=== PATIENT | male | born 1995 | race Caucasian/White ===

== ENCOUNTER 2021-10-14 09:33 | Emergency (ER) | payer BC, OTHER ==
[~2021-10-14] VITALS: Ht 185.4 cm; Wt 100.0 kg
[~2021-10-14 09:33] MED LIST: HYDR1TAB10 PO
[2021-10-14 09:43] VITALS: BP 150/92
--- NOTE | 2021-10-14 09:59 | PHYS DOC ---
Past History Past Medical History: Other Past Surgical History: Other Smoking: Non-smoker Alcohol Use: None Drug Use: None Adult General Chief Complaint Chief Complaint: NOSEBLEED HPI HPI Patient is an otherwise healthy 26-year-old male presents with a nosebleed that started earlier in the day. States he gets them occasionally but this 1 seemed harder to stop. Denies any recent travels, traumas, illnesses, fevers, chest pain, shortness of breath, abdominal pain, nausea, vomiting. Denies any hematuria or blood in the stool. Denies any history of bleeding issues. has been eating and drinking normally. is making urine and stool normally for him. Review of Systems Review of Systems Review of systems otherwise unremarkable except noted in HPI Allergies Allergies Allergies Coded Allergies Type Severity Reaction Last Updated Verified Penicillins Allergy Severe HIVES AND THROAT SWELLING 06/10/14 Yes Physical Exam Physical Exam Constitutional: Well developed, well nourished, no acute distress, non-toxic appearance. [] HENT: Normocephalic, atraumatic, bilateral external ears normal, oropharynx moist, no oral exudates, nose normal, some dried blood in the nares bilaterally, bleeding ceased. [] Eyes: conjunctiva normal, no discharge. [] Cardiovascular:Heart rate regular rhythm, no murmur [] Lungs & Thorax: No respiratory distress Abdomen: soft, no tenderness, no masses, no pulsatile masses. [] Skin: Warm, dry, no erythema, no rash. [] Extremities: No tenderness, no cyanosis, no clubbing, ROM intact, no edema. [] Neurologic: Alert and oriented X 3, able to sit, stand and walk without issue no focal deficits noted. [] Psychologic: Affect normal, judgement normal, mood normal. [] Current Patient Data Vital Signs Vital Signs Date Time Temp Pulse Resp B/P (MAP) Pulse Ox O2 Delivery O2 Flow Rate FiO2 10/14/21 09:43 98.1 76 16 150/92 (111) 96 Room Air EKG EKG [] Radiology/Procedures Radiology/Procedures [] Heart Score C/O Chest Pain: No Risk Factors: Risk Factors: DM, Current or recent (<one month) smoker, HTN, HLP, family history of CAD, obesity. Risk Scores: Risk Factors: DM, Current or recent (<one month) smoker, HTN, HLP, family history of CAD, obesity. Course & Med Decision Making Course & Med Decision Making Patient is a 26-year-old male who presents with nosebleed that is resolved here in the ED Vital signs nonconcerning. Physical exam noted above. Discussed management of epistaxis and given Afrin. Given education on home management. Advised to follow-up with primary care as needed. Gave return precautions to the ED. Patient grateful, verbalized understanding and agreed with plan of discharge. [] Dragon Disclaimer Dragon Disclaimer This electronic medical record was generated, in whole or in part, using a voice recognition dictation system. Departure Departure: Impression: Primary Impression: Epistaxis Disposition: HOME / SELF CARE / HOMELESS Condition: STABLE Referrals: PCP,ADDIE (PCP) MANOLO LUCERO MD Patient Instructions: Nosebleed Additional Instructions: Thank you for coming into the emergency department tonight and allowing us to take care of you. Please read the attached information carefully to go over things we discussed and understand management of nosebleeds at home. Please use your Afrin nose spray as we discussed and demonstrated. Please follow-up with your primary care physician as soon as possible to update on ED visit. Please come back with new or concerning symptoms as discussed. LUIZA ZAVALA MD Oct 14, 2021 09:59
[2021-10-14] MEDS ORDERED: OXYMETAZOLINE 0.05% NASAL SPRAY 30ML BOTTLE. NS ONE (10:00)
== END 2021-10-14 10:15 | disposition home or self-care (01) ==
LOC: ER 09:33
DX: R04.0 Epistaxis (principal); Z88.0 Allergy status to penicillin
CPT/HCPCS: 99282